=== PATIENT | female | born 1990 | race Caucasian/White ===

== ENCOUNTER 2017-01-19 18:18 | Emergency (ER) | payer OTHER ==
[2017-01-19 18:26] VITALS: BP 140/73; PULSE 85; TEMP 97.9; BMI 34.0
[2017-01-19] MEDS ORDERED: CYCLOBENZAPRINE HCL 10 MG TABLET (FP) PO ONE (19:39)
[2017-01-19] MEDS ORDERED: KETOROLAC TROMETHAMINE 60 MG/2 ML VIAL IM ONE (19:39)
--- NOTE | 2017-01-19 19:43 | PDOC ---
History of Present Illness - General Chief Complaint: Pain, Acute Stated Complaint: LT ARM PAIN Time Seen by Provider: 01/19/17 19:10 History Source: Patient, Care Provider Exam Limitations: No Limitations - History of Present Illness Initial Comments: 01/19/17 19:38 Patient is here with , complaints of concerns about cardiac disease. States 2 weeks ago was seen by her private physician who diagnosed her with a epicondylitis with her chief complaint as right arm pain. States the past few days has had intermittent chest palpitations, and today with left arm and shoulder pain. Patient did a Google search and became concerned about cardiac disease and potential heart attack. Patient denies pain, palpitations, any history of cardiac disease or any family history of cardiac disease. Denies any fever, cough, URI symptoms. Denies exercise change although ran once early last week size activity but did not continue. And performs frequent arm lifting, carrying, and riding on blackboard/grease boards. Has taken no medication for relief of the symptoms. admits feels patient has significant anxiety and mild hypochondria. 01/19/17 19:41 01/19/17 19:45 Timing/Duration: reports: changing over time, intermittent Severity: Yes: mild, moderate Location: reports: generalized, torso (shoulders ) Associated Symptoms: reports: denies symptoms Past History - Travel Traveled outside of the country in the last 30 days: No Close contact w/someone who was outside of country & ill: No - Past Medical History Allergies/Adverse Reactions: Allergies Allergy/AdvReac Type Severity Reaction Status Date / Time No Known Allergies Allergy Verified 01/19/17 18:22 Home Medications: Ambulatory Orders Norgestimate-Ethinyl Estradiol [Ortho Tri-Cyclen 28 Tablet] 1 each PO DAILY 08/22 Methocarbamol [Robaxin -] 1,000 mg PO BID #28 tablet 05/20/16 Naproxen [Naprosyn -] 500 mg PO BID #14 tablet 05/20/16 Other medical history: denies - Immunization History Immunization Up to Date: Yes - Psycho/Social/Smoking Cessation Hx Anxiety: No Suicidal Ideation: No Smoking Status: No Smoking History: Never smoked Number of Cigarettes Smoked Daily: 0 Information on smoking cessation initiated: No Hx Alcohol Use: No Drug/Substance Use Hx: No Substance Use Type: None Review of Systems - Review of Systems Able to Perform ROS?: Yes Is the patient limited Nigerian proficient: Yes Constitutional: Yes: See HPI. No: Symptoms Reported, Fever, Malaise HEENTM: Yes: See HPI. No: Symptoms Reported ABD/GI: No: Symptoms Reported Musculoskeletal: Yes: Symptoms Reported, See HPI, Muscle Pain Integumentary: No: Symptoms Reported All Other Systems: Reviewed and Negative *Physical Exam - Vital Signs Last Vital Signs Temp Pulse Resp BP Pulse Ox 97.9 F 85 18 140/73 98 01/19/17 18:20 01/19/17 18:20 01/19/17 18:20 01/19/17 18:20 01/19/17 18:20 - Physical Exam General Appearance: Yes: Nourished, Appropriately Dressed, Apparent Distress, Mild Distress HEENT: positive: EOMI, PAULO, Normal ENT Inspection, Normal Voice, TMs Normal, Pharynx Normal Neck: positive: Tender (tenderness to bilateral sternocleidomastoid muscles with reproduced pain with deep palpation at insertions.), Trachea midline, Supple, Other. negative: Lymphadenopathy (R), Lymphadenopathy (L) Respiratory/Chest: positive: Lungs Clear Cardiovascular: positive: Regular Rhythm Musculoskeletal: positive: Normal Inspection, Muscle Spasm. 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
== END 2017-01-19 22:38 | disposition home or self-care (01) ==
LOC: JERFT 18:18
PROC: 3E0233Z Introduction of Anti-inflammatory into Muscle, Percutaneous Approach (ICD-10-PCS; principal; 2017-01-19)
DX: M25.812 Other specified joint disorders, left shoulder (principal)
CPT/HCPCS: 99281-25

== ENCOUNTER 2019-08-11 21:20 | Emergency (ER) | payer OTHER ==
[2019-08-11 21:38] VITALS: TEMP 98.8; BMI 37.2
[2019-08-11] MEDS ORDERED: IBUPROFEN 400 MG TABLET (FP) PO ONE ×2 (22:25→22:34)
--- NOTE | 2019-08-11 22:26 | PDOC ---
History of Present Illness - General Chief Complaint: Chest Pain Stated Complaint: CHEST PAIN Time Seen by Provider: 08/11/19 22:03 - History of Present Illness Initial Comments: 08/11/19 22:26 29 yo F no PMH, s/p resection, LMP now, presenting with chest discomfort. Patient states that she has had chronic L shoulder issues, and today, when she moves her L shoulder she gets very mild sternal discomfort. Notably, patient had an extensive cardiac workup including CTpe, troponins and stress test when she was 23 years old after coming in with chest pain, ultimately dc'd on naproxen for musculoskeletal pain. Since then, patient reports that she has been very anxious about chest pain due to not understanding what they did and why. Took Aleve yesterday with alleviation of symptoms. No family history of heart disease, HTN, HLD, diabetes, or clots. Patient is not on OCPs. Specifically denies having CP, SOB, abd pain, N/V, fevers/chills, recent travel or immobilization, hx clots, FORTUNE. Past History - Past Medical History Allergies/Adverse Reactions: Allergies Allergy/AdvReac Type Severity Reaction Status Date / Time No Known Allergies Allergy Verified 01/19/17 18:22 Home Medications: Ambulatory Orders Norgestimate-Ethinyl Estradiol [Ortho Tri-Cyclen 28 Tablet] 1 each PO DAILY 08/22 Methocarbamol [Robaxin -] 1,000 mg PO BID #28 tablet 05/20/16 Naproxen [Naprosyn -] 500 mg PO BID #14 tablet 05/20/16 Cyclobenzaprine HCl [Flexeril 10 mg] 10 mg PO BID PRN #14 tablet 01/19/17 COPD: No - Immunization History Immunization Up to Date: Yes - Psycho Social/Smoking Cessation Hx Smoking Status: No Smoking History: Never smoked Number of Cigarettes Smoked Daily: 0 Hx Alcohol Use: No Drug/Substance Use Hx: No Substance Use Type: None Review of Systems - Review of Systems Comments:: 08/11/19 22:30 GENERAL/CONSTITUTIONAL: No fever or chills. No weakness. HEAD, EYES, EARS, NOSE AND THROAT: No change in vision. No ear pain or discharge. No sore throat. CARDIOVASCULAR: No chest pain or shortness of breath. RESPIRATORY: No cough, wheezing, or hemoptysis. GASTROINTESTINAL: No nausea, vomiting, diarrhea or constipation. GENITOURINARY: No dysuria, frequency, or change in urination. MUSCULOSKELETAL: Sternal chest discomfort. No joint or muscle swelling or pain. No neck or back pain. SKIN: No rash NEUROLOGIC: No headache, vertigo, loss of consciousness, or change in strength/ sensation. ENDOCRINE: No increased thirst. No abnormal weight change. HEMATOLOGIC/LYMPHATIC: No anemia, easy bleeding, or history of blood clots. ALLERGIC/IMMUNOLOGIC: No hives or skin allergy *Physical Exam - Vital Signs Last Vital Signs Temp Pulse Resp BP Pulse Ox 98.8 F 94 H 19 133/68 100 08/11/19 21:36 08/11/19 21:36 08/11/19 21:36 08/11/19 21:36 08/11/19 21:36 - Physical Exam 08/11/19 22:31 Gen: well-developed, well-nourished, NAD Neuro: AAOX4, CN II-XII intact, FTN intact, EOMI, PERRLA, 5/5 strength, SILT HEENT: atraumatic, normocephalic, dry mucous membranes Neck: trachea midline, supple CV: regular rate, regular rhythm, no murmurs, rubs, or gallops Pulm: CTA b/l, no wheezing Abd: soft, non-distended, non-tender MSK: full ROM, intact pulses Extr: no edema, no deformities Skin: warm, dry ED Treatment Course - RADIOLOGY Radiology Studies Ordered: Category Date Time Status CHEST PA & LAT [RAD] Stat Radiology 08/11/19 22:24 Ordered Medical Decision Making - Medical Decision Making 08/11/19 22:31 29 yo F with reproducible mild chest discomfort alleviated by Aleve. Leonardo 0, PERC's out. - ibuprofen 400mg - Chest PA + L - extensive education provided about chest pain, heart attacks, and clots. Explained 2013 results. Patient expresses understanding and relief. 08/11/19 23:31 EKG normal sinus at 82 bpm, unchanged from prior. 08/12/19 00:13 CXR without acute pathology. Will dc. Discharge - Discharge Information Problems reviewed: Yes Clinical Impression/Diagnosis: Atypical chest pain Condition: Improved Disposition: HOME - Admission No - Follow up/Referral Referrals: Ifeoma Benitez MD [Primary Care Provider] - - Patient Discharge Instructions Patient Printed Discharge Instructions: DI for Atypical Chest Pain Additional Instructions: You were seen with chest discomfort with movement. This improved with medication. Your chest X ray was unremarkable. Take ibuprofen or acetaminophen as needed for pain. Please follow up with your primary care doctor within one week. Return to the ED if you develop worsening symptoms. - Post Discharge Activity
--- NOTE | 2019-08-11 23:50 | PDOC ---
Documentation entered by Altaf Cabrera SCRIBE, acting as scribe for Tresa Chong MD. Tresa Chong MD: This documentation has been prepared by the Rick esquivel Nirvannie, SCRIBE, under my direction and personally reviewed by me in its entirety. I confirm that the documentation accurately reflects all work, treatment, procedures, and medical decision making performed by me. Attending Attestation - Resident Resident Name: Yosef Neumann - ED Attending Attestation I have performed the following: I have examined & evaluated the patient, The case was reviewed & discussed with the resident, I agree w/resident's findings & plan - HPI HPI: 08/11/19 22:50 The patient is a 29 year old female, with a significant past medical history chronic left shoulder pain, who presents to the emergency department with, substernal chest discomfort worsened with movement of her left arm. She notes taking Naproxen, with relief. Patient notes similar symptoms approximately 6 years ago at which time she had a full cardiac workup and discharged on Naproxen for musculoskeletal pain. She denies any palpitations or shortness of breath. She denies recent fevers, chills, headache or dizziness. She denies recent nausea, vomiting, diarrhea or constipation. She denies recent dysuria, frequency, urgency or hematuria. Allergies: NKDA Primary Care Physician: Dr. Benitez - Physicial Exam PE: 08/11/19 23:48 Awake alert no acute distress lungs are clear bilaterally there is reproducible chest wall tenderness near the mid sternum heart is regular 30 murmurs rubs or gallops abdomen is soft nontender extremities are warm and well-perfused no edema no calf tenderness skin is warm and dry - Medical Decision Making 08/11/19 23:49 29-year-old female here today complaining of chest pain that is sharp worse with certain movements she has had a previous cardiac work-up which was negative does have a PCP plan chest x-ray to rule out pneumonia pneumothorax or other rib injury EKG to the patient's low risk factors previous negative work- up and young age ACS is very unlikely plan Motrin and DC home. Chest x-ray is reviewed and is negative for any pathology DC to home Heart Score/ECG Review #1 General ECG Interpretation: Sinus Rhythm, Normal Rate, Normal Intervals, No acute ischemic changes Compared to previous ECG there are: No significant change (comparison 05/19/16)
[2019-08-12 00:42] VITALS: BP 139/73; PULSE 87
--- NOTE | 2019-08-12 11:40 | EKG ---
Test Reason : Blood Pressure : / mmHG Vent. Rate : 082 BPM Atrial Rate : 082 BPM P-R Int : 136 ms QRS Dur : 084 ms QT Int : 378 ms P-R-T Axes : 049 058 051 degrees QTc Int : 441 ms NORMAL SINUS RHYTHM POSSIBLE LEFT ATRIAL ENLARGEMENT WHEN COMPARED WITH ECG OF 19-MAY-2016 22:49, NO SIGNIFICANT CHANGE WAS FOUND Confirmed by EWA MCCABE MD ([id number]) on 08/12/2019 11:39:52 AM Referred By: Confirmed By:EWA MCCABE MD
== END 2019-08-12 00:35 | disposition home or self-care (01) ==
LOC: JER 21:20
DX: R07.89 Other chest pain (principal)
CPT/HCPCS: 71046-TC-FY; 93005; 93010; 99282-25

== ENCOUNTER 2022-09-19 04:58 | Emergency (ER) | payer BC, OTHER ==
[2022-09-19 05:13] VITALS: BMI 38.9
[2022-09-19] MEDS ORDERED: ACETAMINOPHEN 500 MG TABLET (FP) PO ONE (05:21)
[2022-09-19] MEDS ORDERED: ACETAMINOPHEN 1000 MG/100 ML BAG IVPB ONE (05:26)
[2022-09-19] MEDS ORDERED: SODIUM CHLORIDE 0.9% 500 ML INFUS.BAG IV ONE (05:26)
[2022-09-19] MEDS ORDERED: ACETAMINOPHEN INJECTION 100 ML IVPB ONE (05:36)
[2022-09-19 06:31] LABS: BASO % 0.7 % (0-2.0); EOS % 0.1 % (0-4.5); HEMATOCRIT 34.4 % (32.4-45.2); HEMOGLOBIN 10.9 GM/dL (10.7-15.3); LYMPH % 10.9 % (8-40); MCH 23.1 pg (25.7-33.7); MCHC 31.7 g/dl (32.0-36.0); MEAN CELL VOLUME 72.8 fl (80-96); MEAN PLT VOLUME 8.4 fl (7.5-11.1); MONO % 6.5 % (3.8-10.2); NEUT % 81.8 % (42.8-82.8); PLATELET COUNT 528 10^3/uL (134-434); RBC 4.73 M/mm3 (3.60-5.2); WHITE BLOOD COUNT 16.2 K/mm3 (4.0-10.0)
[2022-09-19] MEDS ORDERED: KETOROLAC TROMETHAMINE 15 MG/ML VIAL IVPUSH ONE (06:46)
[2022-09-19] MEDS ORDERED: KETOROLAC TROMETHAMINE 15 MG/ML VIAL ONE (06:47)
[2022-09-19 06:52] LABS: ALBUMIN 3.4 g/dl (3.4-5.0); BLOOD UREA NITROGEN 12.3 mg/dL (7-18); CALCIUM 9.3 mg/dL (8.5-10.1)
[2022-09-19 06:55] LABS: CREATININE 0.8 mg/dL (0.55-1.3)
[2022-09-19 06:57] LABS: TOT PROT 7.5 g/dl (6.4-8.2)
[2022-09-19] MEDS ORDERED: morphine CARPU-JECT 2 MG/1 ML DISP.SYRIN IVPUSH ONE (06:57)
[2022-09-19] MEDS ORDERED: CEFTRIAXONE 1 GM in DEXTROSE 5%-WATER - 50 ML IVPB ONE (06:57)
[2022-09-19 07:21] LABS: BILIRUBIN,TOTAL 0.2 mg/dL (0.2-1)
[2022-09-19] MEDS ORDERED: CEFTRIAXONE 1 GM/50 ML BAG ONE (07:25)
[2022-09-19 07:51] LABS: PH,URINE 5.5 (5.0-8.0); URINE APPEARANCE CLEAR; URINE BILIRUBIN NEGATIVE (NEGATIVE); URINE COLOR YELLOW; URINE GLUCOSE (UA) NEGATIVE (NEGATIVE); URINE KETONE NEGATIVE (NEGATIVE); URINE LEUK ESTERASE NEGATIVE (NEGATIVE); URINE NITRITE NEGATIVE (NEGATIVE); URINE PROTEIN NEGATIVE (NEGATIVE); URINE UROBILINOGEN 0.2 mg/dL (0.2-1.0)
[2022-09-19 08:08] VITALS: BP 116/79; PULSE 72; RESP 16; TEMP 98
[2022-09-19] MEDS ORDERED: ONDANSETRON 4 MG/2 ML VIAL IVPUSH ONE (08:33)
[2022-09-19] MEDS ORDERED: ONDANSETRON 4 MG/2 ML VIAL ONE (08:35)
== END 2022-09-19 08:39 | disposition home or self-care (01) ==
LOC: JER 04:58
PROC: 3E033GC Introduction of Other Therapeutic Substance into Peripheral Vein, Percutaneous Approach (ICD-10-PCS; principal; 2022-09-19)
DX: N20.0 Calculus of kidney (principal)
CPT/HCPCS: 0241U-QW; 36415; 74019-TC-FY; 74176-TC; 80053; 81003; 83735; 84703; 85025; 87086; 99285-25